=== PATIENT | female | born 1970 | race Hispanic/Latino ===

== ENCOUNTER → 2019-01-18 | Day surgery (SDC) | payer OTHER ==
[~2019-01-18] MED LIST: FENTANYL CITRATE/PF 100MCG/2 ML INJ ONE; GLIPIZIDE5 MG PO; INSULIN REGULAR, HUMAN 100 UNIT/1 ML 3ML VIAL ONE; LISINOPRIL10 MG PO; METFORMIN HCL500 MG PO; MIDAZOLAM HCL 2 MG/2 ML VIAL ONE; PANTOPRAZOLE SO20 MG PO; PRAVASTATIN SOD10 MG PEG; PROPOFOL IV EMULSION 10 MG/ML 50 ML VIAL ONE
--- OUTSIDE RECORDS SUMMARY | 2019-01-18 10:03 | XMS REPORT ---
Author [facility] Address Unknown Phone Unavailable Care Team Providers Care Loss Prevention Operations Manager Name Role Phone Unavailable Unavailable Payers Payer Name Policy Type Policy Number Effective Date Expiration Date Problems This patient has no known problems. Allergies, Adverse Reactions, Alerts Allergy Name Allergy Type Status Severity Reaction(s) Onset Date Inactive Date Treating Clinician Comments iodine DA Active U 2015-03-27 00:00:00 shellfish derived DA Active U 2015-03-27 00:00:00 Medications This patient has no known medications. Encounters Start Date/Time End Date/Time Encounter Type Admission Type Attending Clinicians Care Facility Care Department Encounter ID 2017-04-29 00:00:00 2017-04-29 00:00:00 Outpatient [facility] [id number] 2017-04-14 00:00:00 2017-04-14 00:00:00 Outpatient [facility] [id number] 2017-04-08 10:15:42 2017-04-08 10:15:42 Outpatient [facility] [id number] 2017-03-07 00:00:00 2017-03-07 00:00:00 Outpatient [facility] [id number] 2017-03-07 00:00:00 2017-03-07 00:00:00 Outpatient [facility] [id number] 2017-03-07 00:00:00 2017-03-07 00:00:00 Outpatient [facility] [id number] 2017-03-04 00:00:00 2017-03-04 00:00:00 Outpatient [facility] [id number] 2017-02-28 14:43:30 2017-02-28 14:43:30 Outpatient [facility] [id number] 2017-02-28 12:53:05 2017-02-28 12:53:05 Outpatient [facility] [id number]
[2019-01-18 13:00] VITALS: BP 123/91
--- NOTE | 2019-01-18 13:11 | Operative Report ---
DATE OF PROCEDURE: 01/18/2019 SURGEON: Sanjiv Gonzalez MD PROCEDURE: Esophagogastroduodenoscopy with biopsies. INDICATIONS FOR EGD: Heartburn, bloating. MEDICATIONS: The patient was done under MAC, please see anesthesiologist's note. PROCEDURE IN DETAIL: With the patient in left lateral decubitus position, flexible fiberoptic Olympus gastroscope was introduced into the esophagus under direct visualization without any difficulty. There was some patchy erythema noted in distal esophagus. The scope was then advanced with ease into the stomach and mucosa overlying the antrum and the body revealed some patchy intense erythema and [id number]-[id number] edema and biopsies were obtained and sent to stain for H pylori. Pylorus was intubated with ease and the scope was advanced all the way to the second portion of the duodenum. Biopsies were obtained from the second portion and the duodenal bulb to rule out sprue. The scope was then withdrawn back into the stomach and retroflexed and the mucosa overlying the fundus and the cardia appeared to be within normal limits. The scope was then straightened out, it was subsequently withdrawn. The patient tolerated procedure well. IMPRESSION: 1. Distal esophagitis, mild. 2. Gastritis, biopsied, biopsies sent to stain for H pylori. 3. Rule out sprue. PLAN: Follow up histology. Initiate Protonix 40 mg one p.o. q.a.m. a.c. Sanjiv Gonzalez MD [facility] [place] /[id number] cc: Codey Maddox DO
== END | disposition home or self-care (01) ==
LOC: OR 09:51 → EDBD 01-19 12:00
PROVIDERS: ATTEND Internal Medicine Gastroenterology
DX: K20.9 Esophagitis, unspecified (principal); K29.70 Gastritis, unspecified, without bleeding; R11.2 Nausea with vomiting, unspecified; R12 Heartburn; R14.0 Abdominal distension (gaseous); I10 Essential (primary) hypertension; G40.909 Epilepsy, unspecified, not intractable, without status epilepticus; E11.9 Type 2 diabetes mellitus without complications; K21.9 Gastro-esophageal reflux disease without esophagitis; Z91.048 Other nonmedicinal substance allergy status; Z68.36 Body mass index [BMI] 36.0-36.9, adult; Z79.84 Long term (current) use of oral hypoglycemic drugs; Z01.810 Encounter for preprocedural cardiovascular examination
CPT/HCPCS: 36415; 43239; 81025; 82948; 93005; J2250